=== PATIENT | male | born 1960 | race Caucasian/White ===

== ENCOUNTER 2016-03-12 10:41 | Inpatient (IN) | payer BC, MEDICAID ==
[2016-03-12] MEDS ORDERED: Aspirin Low Dose CHEW TAB* 81 MG PO ONE (10:47)
[2016-03-12 11:34] LABS: Hematocrit 44 % (42-52); Hemoglobin 14.5 g/dl (14.0-18.0); Mean Corpuscular HGB Conc 33 g/dl (31-36); Mean Corpuscular Hemoglobin 29 pg (27-31); Mean Corpuscular Volume 88 fL (80-94); Mean Platelet Volume 8 um3 (7.4-10.4); Red Blood Count 4.97 10^6/ul (4.0-5.4); Red Cell Distribution Width 14 % (10.5-15); White Blood Count 12.4 10^3/ul (3.5-10.8)
[2016-03-12 11:50] LABS: BUN/Creatinine Ratio 15.8 (8-20); Calcium 9.4 mg/dL (8.6-10.3); EGFR African American 105.5 (>60); Globulin 3.1 g/dL (2-4); Potassium 3.8 mmol/L (3.5-5.0); Total Bilirubin 1.1 mg/dL (0.2-1.0); Total Protein 7.1 g/dL (6.4-8.9)
[2016-03-12 11:53] LABS: Troponin I 0.05 ng/mL (<0.04)
--- NOTE | 2016-03-12 11:59 | RAD ---
Indication: Chest pain. Diaphoresis, shortness of breath. Palpitations. Comparison: January 21, [address] Technique: Upright AP 1137 hours Report: Elevated lung volumes and attenuation of pulmonary markings. No focal pulmonary lesion, inflammatory infiltrate, pleural effusion, pneumothorax. The heart, pulmonary vasculature, and mediastinal contours are unremarkable. IMPRESSION: Stigmata of chronic obstructive pulmonary disease and emphysema. No acute cardiopulmonary process evident.
[2016-03-12] MEDS ORDERED: Ketorolac INJ* 30 MG/ML 1 ML VIAL IV ONE (12:01)
--- NOTE | 2016-03-12 12:31 | RAD ---
Indication: Left shoulder pain progressive. 3 views of the left shoulder demonstrates no fracture or dislocation. No other bone or joint abnormality is identified. IMPRESSION: No fracture of the left shoulder is noted.
[2016-03-12] MEDS ORDERED: Ondansetron INJ* 2 MG/ML VIAL IV PRN (14:57)
[2016-03-12 15:17] LABS: C Reactive Protein 17.69 mg/L (< 5.00)
[2016-03-12] MEDS ORDERED: Heparin DRIP 25,000 UNITS(*) 25,000 UNITS/500 ML BAG IVPB SCH (15:30)
[2016-03-12 15:57] LABS: Erythrocyte Sed Rate 14 mm/Hr (0-20)
[2016-03-12] MEDS ORDERED: Heparin VIAL(*) 5000 UNITS/ML VIAL (FIVE THOUSAND) IV SCH ×2 (16:00→18:00)
[2016-03-12] MEDS: NS 0.9% 1000 ML* 1,000 ML IV SCH (16:49)
[2016-03-12] MEDS: Atorvastatin* 80 MG TAB PO SCH (17:02)
[2016-03-12] MEDS ORDERED: Metoprolol Tartrate TAB* 25 MG PO SCH (21:00)
--- NOTE | 2016-03-12 21:24 | HP ---
HISTORY AND PHYSICAL: DATE OF ADMISSION: 03/12/16 PRIMARY CARE PROVIDER: None. ATTENDING PHYSICIAN: Katie Lemus DO * (report dictated by Jaquelin Gonsalez NP ). CHIEF COMPLAINT: 1. Chest tightness. 2. Nausea. HISTORY OF PRESENT ILLNESS: Mr. Tatum is a 55-year-old male patient. He has a history of a bicuspid valve. He comes in to the ER today stating that 2 days ago he noticed that he started having left shoulder pain. It was much worse if he manipulated the shoulder. His shoulder was tender to touch. If he went to raise his arm up, he was having a significant amount of pain. He states that in the last year he has been having intermittent pain like that. He denied having any chest discomfort at that point; however, he woke up in the morning today, he was sweaty. He had a tension, he describes it across the front of his chest. He felt short of breath. He was having some palpitations. He felt weak. He was concerned and he decided to come into the hospital as he was worried that this might indicate a heart attack. He states that by the time he got into the ER, he is unsure how long it lasted but the pain had gone away. He states that he received nitro in the ER and in addition to this, did receive some aspirin, with which the pain went away. He is not sure how long it lasted. He states that prior to this he was able to exert himself. He had no discomfort in his chest. This pain today was brought on with nonexertional discomfort. He states that he does not have a history of smoking, diabetes, high cholesterol, or high blood pressure. He states he has not been sick recently. He does state that he has poor dentition and he has had dental abscesses that he has not had treated in the past. He denied any dental pain currently. He denies any recent URI symptoms. There was concern because initial troponin came back at 0.05 and the hospitalist service was asked to evaluate for admission. PAST MEDICAL HISTORY: Significant for bicuspid valve. PAST SURGICAL HISTORY: Denied. HOME MEDICATIONS: Denied. ALLERGIES TO MEDICATIONS: Include no known drug allergies. FAMILY HISTORY: Mother had COPD. Father had a heart attack at the age of 60, but he was a heavy smoker. SOCIAL HISTORY: He does not smoke. He rarely drinks alcohol. He is with children. Surrogate decision maker is his . REVIEW OF SYSTEMS: There is no documented fever. He denied having any significant weight change. There was no double vision. There is no ear discharge. He denies having any rhinorrhea. No sore throat. No thyroid enlargement. There is chest discomfort per my HPI. There is shortness of breath. There is no orthopnea. No nocturnal dyspnea. There is no abdominal pain. No nausea. No vomiting. No dysuria. No frequency. There is no loss of consciousness. No pruritus and no skin ulcerations. Review of 14 systems completed, all others negative. PHYSICAL EXAMINATION GENERAL: At this time, Mr. Tatum is a 55-year-old male patient. He appears well nourished, well developed. He does not appear to be in any acute distress. He is sitting in the hospital bed. VITAL SIGNS: Blood pressure 102/61, pulse 72, respirations 16, O2 sat 100%, and temperature 99.0. HEENT: Head: Atraumatic and normocephalic. Eyes: EOMs intact. Sclerae anicteric and not pale. Throat: Oral mucosa appears to be moist. No oropharyngeal erythema. NECK: Supple. HEART: Sounds S1, S2. Regular rate and rhythm. He did have a murmur in the mitral area, grade 2 to 3. ABDOMEN: Soft, flat, and nontender. Bowel sounds present. EXTREMITIES: Pulses are 2+ throughout. He is able to move all 4 extremities. He has pain with range of motion to the left shoulder, particularly with abduction and adduction and raising his shoulder above his head, he has discomfort as well. He has 5/5 strength. NEUROLOGIC: He is awake, alert, and oriented x3. Tongue midline. Chemist Intern were equal. No gross focal deficits. SKIN: Intact. LABORATORY DATA/DIAGNOSTIC STUDIES: Today revealed a WBC of 12.4, RBC of 4.97 , hemoglobin 14.5, hematocrit of 44, and a platelet count of 202. His sodium was 134, potassium of 3.8, chloride of 101, bicarb 22, BUN 15, creatinine of 0.95, glucose of 104, lactic of 1.8, calcium 9.4. Total bilirubin 1.1, AST 16, ALT 10, alk phos 61. Troponin was 0.05, repeat 0.16. Albumin 4.0. He had a chest x-ray obtained today, which showed stigmata of COPD and emphysema. No acute cardiopulmonary process evident. He had a shoulder x-ray as well, which showed no fracture of the left shoulder noted. He had initial EKG, which showed a sinus tachycardia, rate of 105. He had ST depression in V3, 4, 5, and 6. He had LVH and looks like a left anterior fascicular block. Repeat EKG with a first-degree AV block, rate of 75. He had inverted T-waves in lead 1, aVL, and T-wave inversions in V4, 5, and 6 and LVH as well. No previous for comparison. Old medical records were reviewed. ASSESSMENT AND PLAN: Mr. Tatum is a 55-year-old male patient coming in to the ER today with complaints of chest discomfort and associated symptoms of nausea, shortness of breath, and diaphoresis. Initial troponin was 0.05, repeat was 0.16. He will be admitted under inpatient status for: 1. Chest discomfort: Concern for acute coronary syndrome. At this point, the patient does have EKG changes. I did touch base with Dr. Morrison occupational medicine officer, Cardiology, about the case. At this point, the patient reports he is not having any chest discomfort. The plan is to go ahead and put him on heparin, statin, beta- grady, aspirin. He received aspirin in the ER. I am going to go ahead and start him on a low-dose metoprolol and a heparin drip. The plan at this point will be to make the patient n.p.o. 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 I did order an echo and we will continue to follow him closely and the EKG changes could be related to the fact that the patient has left ventricular hypertrophy and his bicuspid valve and again, we will get echo to reevaluate this. 2. Leukocytosis: Again, this could be from a myocardial infarction being elevated and a leukemoid reaction. However, the patient does give a history of having dental abscesses in the past with no treatment. He does have a murmur, but he says he has had a murmur in the past. I think minimally I am going to get CRP, ESR, blood cultures. Monitor for fever. Should he spike a fever, I will put him on antibiotics or if the blood cultures come back positive, get an ID consult, as obviously the concern could be a possible endocarditis, although I think less likely. He is not giving that history to me, so we will continue to monitor him for this. 3. DVT prophylaxis: He will be on a heparin drip. 4. Fluids, electrolytes, and nutrition: He can have a heart healthy diet and then, he will be n.p.o. after midnight. 5. Code status: Full code. TIME SPENT: Time spent on the admission was 50 minutes; greater than half the time was spent [id number] with the patient obtaining my history and physical, other half of the time spent going over the plan of care with the patient and implementing plan of care. I did discuss the plan of care with my attending, Dr. Lemus; she is in agreement. JAQUELIN GONSALEZ NP CC: Dr. Morrison* [id number]/CPS #: [id number] MTDD
[2016-03-12] MEDS: Metoprolol Tartrate TAB* 25 MG PO SCH (21:58)
[2016-03-12] MEDS ORDERED: Heparin VIAL(*) 5000 UNITS/ML VIAL (FIVE THOUSAND) SUBCUT SCH (22:00)
[2016-03-12] MEDS: Acetaminophen TAB* 325 MG PO PRN (22:05)
[2016-03-12 22:08] LABS: Urine Bacteria Absent (Absent); Urine Bilirubin Negative (Negative); Urine Glucose Negative (Negative); Urine Nitrite Negative (Negative)
[2016-03-13] MEDS: Acetaminophen TAB* 325 MG PO PRN (03:23)
[2016-03-13] MEDS: NS 0.9% 1000 ML* 1,000 ML IV SCH (03:23)
[2016-03-13 06:08] LABS: Hematocrit 38 % (42-52); Hemoglobin 13.1 g/dl (14.0-18.0); Mean Corpuscular HGB Conc 34 g/dl (31-36); Mean Corpuscular Hemoglobin 30 pg (27-31); Mean Corpuscular Volume 88 fL (80-94); Mean Platelet Volume 8 um3 (7.4-10.4); Red Blood Count 4.37 10^6/ul (4.0-5.4); Red Cell Distribution Width 14 % (10.5-15); White Blood Count 9.8 10^3/ul (3.5-10.8)
[2016-03-13 06:23] LABS: BUN/Creatinine Ratio 20.4 (8-20); Calcium 8.5 mg/dL (8.6-10.3); EGFR African American 108.1 (>60); HDL Cholesterol 51.1 mg/dL; Potassium 4.2 mmol/L (3.5-5.0)
[2016-03-13 06:33] LABS: Troponin I 0.1 ng/mL (<0.04)
[2016-03-13] MEDS: Metoprolol Tartrate TAB* 25 MG PO SCH (08:49)
[2016-03-13] MEDS: Aspirin EC Low Dose* 81 MG TAB.EC PO SCH (09:39)
--- NOTE | 2016-03-13 10:34 | ECHO ---
Patient: LAURA SELBY [facility] Rec#: [id number] : 1960 Date: 03/13/2016 Age: 55y Height: 180.3 cm / 71.0 in Weight: 74.8 kg / 164.9 lbs Sex: M BSA: 1.9 Room#: [facility] Admit Date#: 03/12/2016 Type: Inpatient Referring: Nile Gonsalez NP Reading: Gabriele Madden MD Inside Sales Account Representative: Deborah Boyce RN [facility] Inside Sales Account Representative: Rosmery Velez CC: Raj García MD Transthoracic Echocardiogram Indication: Abnormal EKG, Elevated Troponins BP: 104/52 HR: 62 Rhythm: NSR Findings History: Bicuspid Aortic Valve. Technical Comments: The study quality is fair. Completed at 0930. Left Ventricle: The left ventricular chamber size is normal. Mild to moderate concentric left ventricular hypertrophy is observed. Global left ventricular wall motion and contractility are within normal limits. The left ventricle appears hyperdynamic. The estimated ejection fraction is greater than 65%. Abnormal left ventricular diastolic filling is observed, consistent with impaired relaxation. Left Atrium: The left atrium is slightly dilated. Right Ventricle: The right ventricular cavity size is normal. The right ventricular global systolic function is normal. Right Atrium: The right atrium is mildly dilated. Aortic Valve: The aortic valve appears bicuspid. The aortic valve leaflets are severely thickened with reduced systolic excursion. There is mild to moderate aortic regurgitation. The degree of regurgitation may be underestimated due to an eccentric jet. There is moderate to severe aortic stenosis.Although mean gradient of greater than 40 mmg and peak velocity of greater than 4m/sec suggests more toward severe. The mean gradient of the aortic valve is 63 mmHg. The peak instantaneous gradient of the aortic valve is 93 mmHg. The aortic valve area, by peak velocities, is calculated at 1 cm2. The aortic valve area, by VTI's, is calculated at 1.1 cm2. Highest aortic valve velocity was acquired with Pedoff in suprasternal notch position. The measured aortic regurgitation pressure half-time is 449 msec. Mitral Valve: The mitral valve leaflets are mildly thickened. There is mild mitral regurgitation. There is no evidence of mitral stenosis. Tricuspid Valve: The tricuspid valve leaflets are normal. There is mild tricuspid regurgitation. No pulmonary hypertension is noted. There is no tricuspid stenosis. Pulmonic Valve: The pulmonic valve structure is not well visualized. Pericardium: A trivial pericardial effusion is visualized. A pericardial fat pad is visualized. Aorta: There is no dilatation of the ascending aorta. There is no dilatation of the aortic arch. There is no dilation of the aortic root. Pulmonary Artery: The main pulmonary artery is not well visualized. Venous: The inferior vena cava appears normal in size. There is a greater than 50% respiratory change in the inferior vena cava dimension. Conclusions Mild to moderate concentric left ventricular hypertrophy is observed. The left ventricle appears hyperdynamic. The estimated ejection fraction is greater than 65%. Abnormal left ventricular diastolic filling is observed, consistent with impaired relaxation. The left atrium is slightly dilated. The right atrium is mildly dilated. The aortic valve appears bicuspid. There is moderate to severe aortic stenosis.Although mean gradient of greater than 40 mmg and peak velocity of greater than 4m/sec suggests more toward severe. There is mild to moderate aortic regurgitation(see note above). There is mild mitral regurgitation. A trivial pericardial effusion is visualized. Compared to report of study from 03/01/2006 the bicuspid valve has worsened significantly. Measurements Name Value Normal Range RVDdMajor (2D) 3 cm (2.2 - 4.4) RAd ISD 4CH 5.3 cm (3.4 - 4.9) RA (A4C)W 3.7 cm (2.9 - 4.6) IVSd (2D) 1.4 cm (0.6 - 1) LVPWd (2D) 1.1 cm (0.6 - 1) LVIDd (2D) 4.8 cm (3.6 - 5.4) LVIDs (2D) 2.9 cm - LV FS (2D) 40 % (25 - 45) Aortic Annulus 2.2 cm (1.4 - 2.6) Ao root diameter (2D) 3 cm (2.1 - 3.5) Ascending Ao 3 cm (2.1 - 3.4) Aortic arch 2.9 cm (1.8 - 3.4) LA dimension (AP) 2D 3.8 cm (2.3 - 3.8) LAd ISD 4CH 5 cm (2.9 - 5.3) LA ISD 4CH W 4.9 cm (2.5 - 4.5) Name Value Normal Range LA ESV SP 4CH (A/L) 73 ml - LA ESV SP 2CH (A/L) 48 ml - LA ESV BP (A/L) 60 ml - LA ESV BP (A/L) index 31 ml/m2 - LA ESV SP 4CH (MOD) 67 ml - LA ESV SP 2CH (MOD) 44 ml - Name Value Normal Range MV E-wave Vmax 0.5 m/sec - MV deceleration time 181 msec - MV A-wave Vmax 0.8 m/sec - MV E:A ratio 0.6 ratio - LV septal e' Vmax 0.03 m/sec - LV lateral e' Vmax 0.07 m/sec - LV E:e' septal ratio 16.7 ratio - LV E:e' lateral ratio 7.1 ratio - Name Value Normal Range AV Vmax 4.8 m/sec - AV VTI 119.5 cm - AV peak gradient 93 mmHg - AV mean gradient 63 mmHg - LVOT diameter 2.3 cm - LVOT Vmax 1.2 m/sec - LVOT VTI 30.6 cm - PAUL (continuity Vmax) 1 cm2 - PAUL (continuity VTI) 1.1 cm2 - AR PHT 449 msec - AR peak gradient 54 mmHg - Name Value Normal Range TR Vmax 2.7 m/sec - TR peak gradient 29 mmHg - RAP 3 mmHg - RVSP 32 mmHg - IVC diameter 1.4 cm -
[2016-03-13] MEDS ORDERED: Adenosine* 3 MG/ML VIAL ONE ×2 (12:27→12:28)
[2016-03-13] MEDS ORDERED: Metoprolol Tartrate TAB* 25 MG PO SCH (12:54)
[2016-03-13] MEDS ORDERED: Metoprolol Tartrate IV* 1 MG/ML 5 ML VIAL IV PRN (12:55)
[2016-03-13] MEDS ORDERED: Diazepam TAB(*) 5 MG PO ONE (13:22)
[2016-03-13] MEDS ORDERED: diPHENhydraMINE PO* 25 MG PO ONE (13:22)
[2016-03-13] MEDS ORDERED: NS 0.9% 1000 ML* 1,000 ML IV SCH ×2 (13:30→16:00)
[2016-03-13] MEDS ORDERED: Metoprolol Tartrate TAB* 50 mg PO SCH (13:41)
[2016-03-13] MEDS ORDERED: Midazolam* 1 MG/ML 5 ML VIAL (5 MG) ONE (14:21)
[2016-03-13] MEDS ORDERED: fentaNYL* 50 MCG/ML 2 ML VIAL (100 MCG VIAL) ONE (14:21)
[2016-03-13] MEDS ORDERED: Iohexol 350 (CONTRAST) 200 ML MDV IV ONE (14:22)
[2016-03-13] MEDS ORDERED: Lidocaine 1% INJ* 10 MG/ML 30 ML SDV ONE (14:22)
[2016-03-13] MEDS ORDERED: Heparin 2 UNITS/ML IVPREMIX* 3,000 ML IV ONE (14:22)
--- NOTE | 2016-03-13 14:49 | PN ---
Subjective Date of Service: 03/13/16 Interval History: This is a 55 yo gentleman with a known bicuspid aortic valve who presented with complaints of L shoulder pain, lightheadedness and generalized malaise who had an indeterminant trop in the ER but lateral Twave changes in precordial leads. He was placed on a heparin drip overnight. Trop improved overnight and patient went to stress test. He went in to a junctional tachycardia which was broken with adenosine but then immediately returned. Patient is still tachycardic at this time with HR ~120 bpm. He states that he is still having L shoulder pain, that is mostly present with motion of his arm. He feels a little flushed but otherwise has no complaints. Objective Active Medications: Acetaminophen (Tylenol Tab*) 650 mg PO Q4H PRN PRN Reason: FEVER/PAIN Last Admin: 03/13/16 03:23 Dose: 650 mg Aspirin (Aspirin Ec Low Dose*) 81 mg PO DAILY [facility] Last Admin: 03/13/16 09:39 Dose: 81 mg Atorvastatin Calcium (Lipitor*) 80 mg PO 1700 [facility] Last Admin: 03/12/16 17:02 Dose: 80 mg Sodium Chloride (Ns 0.9% 1000 Ml*) 1,000 mls @ 100 mls/hr IV PER RATE [facility] Last Admin: 03/13/16 03:23 Dose: 100 mls/hr Sodium Chloride (Ns 0.9% 1000 Ml*) 1,000 mls @ 100 mls/hr IV .per rate [facility] Metoprolol Tartrate (Lopressor Iv*) 5 mg IV Q6H PRN PRN Reason: Heart rate greater than 100 Metoprolol Tartrate (Lopressor Tab*) 50 mg PO BID [facility] Ondansetron HCl (Zofran Inj*) 4 mg IV Q6H PRN PRN Reason: NAUSEA Vital Signs: Temp Pulse Resp BP Pulse Ox 97.5 F 110 18 127/76 100 03/13/16 11:09 03/13/16 11:09 03/13/16 11:09 03/13/16 11:09 03/13/16 11:09 Appearance: Well appearing gentleman who appears younger than stated age who is in NAD Neck: NL Appearance and Movements; NL JVP Respiratory: Symmetrical Chest Expansion and Respiratory Effort, Clear to Auscultation Cardiovascular: RRR - tachycardic, - - significant murmur appreciated, best heard at RSB Abdominal: NL Sounds; No Tenderness; No Distention Extremities: No Edema Neurological: Alert and Oriented x 3 Result Diagrams: 03/13/16 05:33 03/13/16 05:33 Microbiology and Other Data: Microbiology 03/12/16 21:35 Urine Culture - Final Urine No Growth (<1,000 CFU/mL) Diagnostic Imaging: Echo - mild-mod LVH, mod-severe , mild-mod , LVEF WNL Assess/Plan/Problems-Billing Assessment: This is a 55 yo gentleman with a history of a bicuspid aortic valve who presented with vague cardiac symptoms now with elevated troponin and tachyarrythmia. Cardiac catheterization pending. - Patient Problems (1) ACS (acute coronary syndrome) Comment: Pending cardiac cath Dynamic lateral precordial changes Heparin drip in place Cont BB, statin, ASA (2) Severe aortic stenosis Comment: Known bicuspid aortic valve, now with known severe aortic stenosis Will discuss further with cardiology following cath (3) Tachyarrhythmia Comment: Sustained HR in the 120s Pending cath Cont BB Status and Disposition: Pending cardiac cath, disposition will depend greatly on this. Requires continued hospital care. Will transition to inpatient status.
[2016-03-13] MEDS ORDERED: Heparin 2 UNITS/ML IVPREMIX* 1,000 ML IV ONE (14:50)
[2016-03-13] MEDS ORDERED: Metoprolol Tartrate IV* 1 MG/ML 5 ML VIAL ONE (14:59)
[2016-03-13] MEDS ORDERED: Acetaminophen TAB* 325 MG PO PRN (15:48)
[2016-03-13] MEDS ORDERED: Atropine SYRINGE* 0.1 MG/ML 10 ML SYRINGE (1 MG) IV PUSH PRN (16:00)
[2016-03-13] MEDS: Atorvastatin* 80 MG TAB PO SCH (17:27)
--- NOTE | 2016-03-13 17:48 | CONS ---
CARDIOLOGY CONSULTATION REPORT: DATE OF CONSULT: 03/13/16 INDICATION FOR CONSULT: Chest pain, elevated troponin, bicuspid aortic valve. HISTORY OF PRESENT ILLNESS: The patient is a 55-year-old gentleman with a history of bicuspid valve who came to the emergency room because of chest pain and chest tightness. The patient states that a couple of days ago, he started noticing that his left shoulder was more difficult to move, it just felt stiff. He denied any injury to the left shoulder. He denied any change in symptoms when he exerted himself. The patient works at [employer] and is often lifting and moving boxes and does not get any chest pain or shortness of breath with those activities. However, on the day of admission, he woke up the morning , had continued left shoulder discomfort and started to feel nauseous and diaphoretic. At that point, he decided to come to the emergency room for evaluation. Again, the patient denied any syncopal episodes. He has no history of coronary artery disease, but does have a history of bicuspid aortic valve diagnosed in 2006. 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 The patient was admitted to the emergency room. His initial EKG showed normal sinus rhythm with T-wave inversions consistent with left ventricular hypertrophy. Initial troponin level was minimally elevated at 0.05. The patient was admitted to the hospital for evaluation. The patient has not had any further episodes of chest discomfort, he has not had any further episodes of nausea; however, he continues to have left shoulder discomfort. PAST MEDICAL HISTORY: Significant for bicuspid aortic valve. PAST SURGICAL HISTORY: None. MEDICATIONS: None. ALLERGIES: None. FAMILY HISTORY: His mother of complications of COPD. Father had a history of myocardial infarction at the age of 60. His father was a heavy smoker. SOCIAL HISTORY: The patient is . He has 2 children. He works at [employer]. He denies tobacco or alcohol use. REVIEW OF SYSTEMS: Negative for fevers or chills. Negative for changes in weight. Negative for lightheadedness, dizziness, or syncope. PHYSICAL EXAM: Height is 5 feet 11 inches, weight 165 pounds, temperature 97.5 , heart rate is 90, respiratory rate is 18, oxygen saturation is 100% on room air. Blood pressure 127/76. Sclerae anicteric. Oropharynx is pink without erythema. Carotids are 2+ without bruits. JVD is normal. Thyroid is normal. Cardiac Exam: S1, S2 with a 2/6 systolic ejection murmur heard best at the right upper sternal border. PMI is normal. Lungs are clear to auscultation bilaterally with no dullness to percussion. Abdomen is soft, nontender, nondistended with normoactive bowel sounds. Extremities show no edema. He has 2+ pulses in his dorsalis pedis and popliteal. The patient is awake, alert, and oriented. He moves all 4 extremities equally. DIAGNOSTIC STUDIES/LAB DATA: CBC within normal limits. Chemistries within normal limits. Initial troponin level is 0.05. Peak troponin 0.23. Total cholesterol 186, LDL cholesterol 126, HDL cholesterol of 51. The patient was scheduled for an exercise nuclear stress test. The patient was brought downstairs. He was in a normal sinus rhythm on arrival to the exercise suite. However, within a few minutes the patient went into a junctional tachycardia at 125 beats per minute. The patient did not have any significant symptoms associated with this. He did feel a little bit lightheaded when he stood up. The patient was given 6 mg of adenosine, which causes rhythm to change to a normal sinus rhythm with 2:1 conduction with occasional PVCs. After 10 seconds or so, he reverted back to junctional tachycardia at 130 beats per minute. IMPRESSION: This is a 55-year-old gentleman with a history of bicuspid aortic valve. His echocardiogram shows normal left ventricular function. He has moderate- to-severe aortic stenosis. He does have a significant mean gradient across this aortic valve and his dimensionless index is 0.26. He does not have any dilation of his ascending aorta. The question is whether his symptoms are related to his aortic stenosis. The patient does have this junctional tachycardia. The patient does not have any history of arrhythmias. I do not think it is barrow to undergo an exercise stress test in a junctional tachycardia. At this point, my recommendation is for the patient to undergo cardiac catheterization for definitive evaluation of his coronary arteries. I will also get measurements across his aortic valve. Likely, the patient will be started on an antiarrhythmic medication. I would like to start the patient on Multaq. I am not sure I need to start the patient on sotalol or Tikosyn, which requires 3 days of hospitalization. Further recommendations pending the results of his cardiac catheterization. CC: Dr. García* [id number]/[facility] #: [id number] JAVON
[2016-03-13] MEDS: Metoprolol Tartrate TAB* 50 mg PO SCH (21:39)
[2016-03-14 07:44] VITALS: BP 88/50
[2016-03-14] MEDS ORDERED: Aspirin EC Low Dose* 81 MG TAB.EC ONE (09:17)
[2016-03-14] MEDS: Metoprolol Tartrate TAB* 50 mg PO SCH (09:19)
[2016-03-14] MEDS: Aspirin EC Low Dose* 81 MG TAB.EC PO SCH (09:20)
--- NOTE | 2016-03-14 09:50 | CATH ---
CARDIAC CATHETERIZATION: DATE OF PROCEDURE: 03/12/16 - ROOM #446 PROCEDURE: Cardiac catheterization including right heart catheterization, left heart catheterization, coronary angiography, left ventriculogram. INDICATION: Aortic stenosis. The patient is a 55-year-old gentleman with a history of bicuspid aortic valve who was admitted to the hospital with chest pain and diaphoresis. He has a minimally elevated troponin level and an abnormal EKG. Cardiac catheterization was recommended to evaluate his valve for surgery. DESCRIPTION OF PROCEDURE: The patient was brought to the cardiac catheterization lab in a fasting state. Informed consent had been obtained prior to the procedure. All labs had been reviewed. The patient was placed supine on the catheterization table. Both femoral areas were cleaned and draped in the usual fashion. 1% lidocaine was used for local anesthesia. The right femoral vein was entered by a modified Seldinger technique and an 8- Nigerian sheath introducer was placed. The patient underwent right heart catheterization with a 7-Nigerian blunt tip [place]Leslie catheter. Multiple hemodynamic and oxygen saturation measurements were taken. Cardiac output was determined by Andrew and thermodilution. The right femoral artery was entered via modified Seldinger technique and a 6- Nigerian sheath introducer was placed. The patient underwent left ventriculogram , coronary angiography using a 6-Nigerian Pigtail catheter, a 6-Nigerian JL5 catheter, and a 6-Nigerian JR4 catheter. At the end of the procedure, angiogram of the femoral artery demonstrated normal position of the catheter and a Mynx closure device was deployed. The patient tolerated the procedure well. There were no complications. A total of 100 cc of Omnipaque dye was used. A total of 7.3 minutes of fluoro time was used. FINDINGS: HEMODYNAMICS: Right atrial pressure with a mean of 9, right ventricular pressure of 30/2 with an end-diastolic pressure of 6, pulmonary capillary wedge pressure of 10, pulmonary artery pressure of 34/16 with a mean of 23, left ventricular pressure 172/6 with an end-diastolic pressure of 10. Central aortic pressure 100/58 with a mean of 77. Cardiac output by Andrew 5.1 L/min. Cardiac output by thermodilution 5.7 L/min. Oxygen saturation, right atrial saturation 69%, pulmonary artery saturation 66%, central aortic saturation 93%. Aortic valve with a mean gradient of 52 mmHg. Calculated valve area by thermodilution 0.7 cm squared, 0.34 cm squared by body surface area. CORONARY ARTERIES: 1. Left main artery: The left main was normal in size. It trifurcated into the LAD, ramus artery and circumflex artery. There was no evidence of stenosis. 2. Left anterior descending artery: The LAD was normal in size. It gave off two diagonal vessels. There is no evidence of stenosis. 3. Left circumflex artery: The circumflex artery was normal in size. It gave off one obtuse marginal branch. There was no evidence of stenosis. 4. Ramus artery. The ramus artery was a moderate vessel. There was no evidence of stenosis. 5. Right coronary artery. The right coronary artery was a large dominant vessel, giving off the PDA. There is no evidence of stenosis. LEFT VENTRICULOGRAM: Left ventricle showed normal LV size with systolic function. There was heavy calcification of the aortic valve. There was 1+ mitral regurgitation. The ascending aorta was normal in size. IMPRESSION: 1. Normal LV size and systolic function. 2. Severe aortic stenosis. 3. Normal coronary arteries. 4. Mynx closure device to the right femoral artery. RECOMMENDATION: The patient will undergo aortic valve replacement. [id number]/[facility] #: [id number] JAVON
--- NOTE | 2016-03-14 11:42 | PN ---
Subjective Date of Service: 03/14/16 - CC: Interval History: No recurrence of diaphoresis and nausea since admission. Left shoulder pain with moving/lifting left arm persists. None walking. The patient had many questions regarding his aortic valve and left shoulder pain , upcoming surgery. Medications Active Medications: Acetaminophen (Tylenol Tab*) 650 mg PO Q4H PRN PRN Reason: PAIN - MILD Last Admin: 03/13/16 21:36 Dose: 650 mg Aspirin (Aspirin Ec Low Dose*) 81 mg PO DAILY [facility] Last Admin: 03/14/16 09:20 Dose: 81 mg Atorvastatin Calcium (Lipitor*) 80 mg PO 1700 [facility] Last Admin: 03/13/16 17:27 Dose: 80 mg Atropine Sulfate (Atropine Syringe*) 0.5 mg IV PUSH ONCE PRN PRN Reason: SYMPTOMATIC BRADYCARDIA Metoprolol Tartrate (Lopressor Iv*) 5 mg IV Q6H PRN PRN Reason: Heart rate greater than 100 Metoprolol Tartrate (Lopressor Tab*) 50 mg PO 0900,2100 [facility] Last Admin: 03/14/16 09:19 Dose: 50 mg Ondansetron HCl (Zofran Inj*) 4 mg IV Q6H PRN PRN Reason: NAUSEA Objective Vital Signs: Temp Pulse Resp BP Pulse Ox 98.3 F 67 14 88/50 98 03/14/16 07:34 03/14/16 07:34 03/14/16 07:56 03/14/16 07:34 03/14/16 10:49 Oxygen Devices in Use Now: None Appearance: fit appearing older middle aged gentleman lying in bed, comfortable. Eyes: No Scleral Icterus, PERRLA Ears/Nose/Mouth/Throat: Mucous Membranes Moist Neck: NL Appearance and Movements; NL JVP, Trachea Midline Respiratory: Clear to Auscultation Cardiovascular: RRR - S1, no S2, 3/6 pansystolic murmer heard best in the RUSB, radiating across the precordium. + diastolic murmer. Abdominal: NL Sounds; No Tenderness; No Distention Extremities: - - good symetrical radial pulses, pt would not lift LUE for me do to concern for precipitation of pain. Skin: No Rash or Ulcers Laboratory Results: APTT 38.5 seconds (26.0-36.3) H 03/13/16 13:22 Total Bilirubin 1.10 mg/dL (0.2-1.0) H 03/12/16 11:23 AST 16 U/L (13-39) 03/12/16 11:23 ALT 10 U/L (7-52) 03/12/16 11:23 Alkaline Phosphatase 61 U/L (34-104) 03/12/16 11:23 Total Protein 7.1 g/dL (6.4-8.9) 03/12/16 11:23 Albumin 4.0 g/dL (3.2-5.2) 03/12/16 11:23 Globulin 3.1 g/dL (2-4) 03/12/16 11:23 Albumin/Globulin Ratio 1.3 (1-3) 03/12/16 11:23 Triglycerides 44 mg/dL 03/13/16 05:33 Cholesterol 186 mg/dL 03/13/16 05:33 LDL Cholesterol 126 mg/dL 03/13/16 05:33 HDL Cholesterol 51.1 mg/dL 03/13/16 05:33 Diagnostic Imaging: Cardiac catheterization: normal coronary arteries, severe , mean gradient 52 mm Hg. Echo: Severe mean gradient 63 mmHg, peak velocity > 4 m/s, PAUL 1.0 cm2, moderate AI, P 1/2 449 ms, preserved LV systolic function, EF > 65%, . EKG Data: Monitor: NSR, no recurrence of junctional/narrow complex tachycardia. Assessment/Plan 55 yo male with a bicuspid aortic valve, presented with new onset shoulder pain (c/w musculo/skelatal in etiology) and associated nausea and diaphoresis. Findings at [facility] included intermittent narrow complex tachycardia, mild bump in troponins, severe , moderate AI and normal coronary arteries. Points of Discussion: Bicuspid aortic valve, /AI: I agree with surgery recommendations as an outpatient. I discussed activity limitations, symptom limited activity and avoidance of heavy lifting. SVT: Continue beta grady, I discussed the importance of compliance with the patient. BP: low/low normal BP noted, pt asymptomatic, OK to d/c on current metoprolol dose, can be adjusted prn symptoms as outpatient. Shoulder pain: sounds non cardiac, musc/skel, I reassured the patient. Defer management/work up plant to hospitalists. I spent 30 minutes answering questions with the patient.
--- NOTE | 2016-03-14 20:04 | PN ---
Hospitalist Progress Note . HOSPITALIST DISCHARGE NOTE: See dc instructions and summary by me. Patient stable for dc dc instructions reviewed with the patient at the bedside. DC patient home today.
--- NOTE | 2016-03-15 13:01 | RAD ---
INDICATION: Chest pain. COMPARISON: There are no prior studies available for comparison. Technique: A resting only study was performed. The stress study was canceled secondary to a rapid heart rate. The patient was given intervenous injection of 10.51 mCi of technetium 99m tetrofosmin intravenously and multiple images of the heart were obtained. Images were reconstructed in the axial, sagittal and coronal planes and in a 3-D format. The patient could not be positioned for the attenuation corrected images further limiting the study. The study was not gated due to the patient's irregular heart rate. FINDINGS: The images demonstrate normal distribution of radiopharmaceutical. There is no evidence for infarct. IMPRESSION: LIMITED REST STUDY ONLY, NO EVIDENCE FOR INFARCT CONSIDER FOLLOW-UP STRESS MYOCARDIAL PERFUSION IMAGING WHEN THE PATIENT IS CLINICALLY ABLE.
--- NOTE | 2016-03-15 15:36 | DS ---
DISCHARGE SUMMARY: DATE OF ADMISSION: 03/12/16 DATE OF DISCHARGE: 03/14/16 PRIMARY CARE PROVIDER: Krishan García MD, [facility] - perhaps an associate in Dr. García's office - route to Dr. García for further routing. PRINCIPAL DISCHARGE DIAGNOSIS: Critical aortic stenosis with echocardiogram results below and cardiac catheterization did not show obstructive coronary disease. SECONDARY DIAGNOSIS: Known bicuspid aortic valve. DISCHARGE MEDICATIONS: 1. Aspirin 81 mg by mouth daily. 2. Metoprolol 50 mg by mouth twice daily. 3. OTC garlic (now prescribed). 4. OTC fish oil (now prescribed). FOLLOWUP: With Dr. Edin Morrison, [employer] sales consultant. HISTORY OF PRESENT ILLNESS/HOSPITAL COURSE: Please see the H and P by Dr. Katie Lemus on 03/12/16. In brief, Mr. Tatum is a 55-year-old gentleman with a history of bicuspid aortic valve who came to the emergency room with 2 days of left shoulder pain. It was worse when he manipulated the shoulder. It was tender to touch. It was clearly a musculoskeletal issue. The patient did have aspirin because of the concern for perhaps a coronary equivalent and that he had some pain resolved. The patient's troponin came back at 0.05 and the hospitalists were asked for evaluation. The patient did have an initial EKG which showed ST depressions at V3, 4, 5, and 6 with LVH and left anterior fascicular block. The patient was placed on observation status and there was a cardiology consult because of the EKG changes. The patient was started on low dose metoprolol and heparin drip. The patient ultimately went to cardiac catheterization when he failed a stress test because of extreme tachycardia. His troponin did increase but never out of the indeterminate range. The patient 's cardiac catheterization showed clean coronaries. He did have a transthoracic echocardiogram which was very concerning and that it showed severe aortic stenosis with a mean gradient of greater than 40 mmHg and a peak velocity greater than 4 m/second. The patient is recommended for cardiac surgery. The patient understands this and is working with a social media marketing analyst to obtain an insurance for this. The patient is being discharged in stable condition with stable vital signs and no chest discomfort with a heart rate that is much better controlled on admission. On his metoprolol, his tachycardia has nicely resolved with a resting heart rate in the 60s and 70s down from the heart rate in the mid teens around the time of admission. The patient still has shoulder pain. He has very clearly musculoskeletal pain on the anterior portion of his left shoulder capsule and he will require an orthopedics followup at some point, but there was no trauma that was causing this and this has been going on for a year. So, I felt it is not sufficiently urgent to justify an inpatient orthopedics consultation. The patient is going to follow up with [facility], but also with [facility] Cardiology, they are aware of his situation and going to reach out. I spoke to him about the importance of medication compliance in particular his aspirin and metoprolol and he said he will comply with that instruction. TIME SPENT: Total time taken to discharge Mr. Tatum was 45 minutes; greater than half that time was spent going over the discharge instructions, face-to- face with the patient. CC: Dr. García * [id number]/[facility] #: [id number] JAVON
--- NOTE | 2016-04-02 20:16 | ED ---
Monico Foster Matthew, scribed for Faith Marks MD on 03/12/16 at 1157 . HPI Chest Pain - HPI Summary HPI Summary: A 55 y/o male presents to the ED with mild chest pain since this morning. Associated symptoms include left arm pain - since 2 days ago, SOB - since 08:00 today, fever, mild chest discomfort - since this morning, and fatigue. The patient denies trauma, cough, chills, and upper back pain. His arm pain alleviates with rest and worsens with movement. For the past year, he has had had minimal left arm pain, which worsened with reaching movements. - History of Current Complaint Chief Complaint: EDChestPainROMI Time Seen by Provider: 03/12/16 11:13 Hx Obtained From: Patient Onset/Duration: Started Hours Ago, Atraumatic, Still Present Timing: Constant Initial Severity: Mild Current Severity: Mild Chest Pain Location: Mid Sternal Associated Signs and Symptoms: Positive: Chest Pain, Shortness of Breath, Other : - Fatigue. Negative: Chills, Cough, Back Pain - upper back pain - Allergy/Home Medications Allergies/Adverse Reactions: Allergies Allergy/AdvReac Type Severity Reaction Status Date / Time No Known Allergies Allergy Verified 03/12/16 11:36 PMH/Surg Hx/FS Hx/Imm Hx Previously Healthy: Yes Endocrine/Hematology History: Denies: Hx Diabetes Cardiovascular History: Denies: Hx Hypertension Infectious Disease History: Denies: Traveled Outside the [place] in Last 30 Days - Family History Family History: No FHx of blood clots or PE. No FHx of AK <55 - Social History Lives: With Family Alcohol Use: None Substance Use Type: Reports: Marijuana Hx Tobacco Use: No Smoking Status (MU): Never Smoked Tobacco Review of Systems Positive: Fatigue. Negative: Chills Eyes: Negative ENT: Negative Positive: Chest Pain - minimal Positive: Shortness Of Breath. Negative: Cough Gastrointestinal: Negative Genitourinary: Negative Positive: Myalgia - lower back pain Skin: Negative Neurological: Negative Psychological: Normal All Other Systems Reviewed And Are Negative: Yes Physical Exam Triage Information Reviewed: Yes Vital Signs On Initial Exam: Temp Pulse Resp BP Pulse Ox 98.4 F 104 14 118/86 98 03/12/16 11:26 03/12/16 11:30 03/12/16 11:30 03/12/16 11:30 03/12/16 11:30 Vital Signs Reviewed: Yes Appearance: Positive: Well-Appearing, No Pain Distress Skin: Positive: Warm, Skin Color Reflects Adequate Perfusion, Dry Head/Face: Positive: Normal Head/Face Inspection Eyes: Positive: EOMI, MICHELLE ENT: Positive: Pharynx normal, TMs normal Neck: Positive: Supple, Nontender Respiratory/Lung Sounds: Positive: Clear to Auscultation, Breath Sounds Present Cardiovascular: Positive: RRR, Murmur - 3/6 holosystolic. Negative: Rub Abdomen Description: Positive: Nontender, Soft Bowel Sounds: Positive: Present Musculoskeletal: Positive: Other - severe deltopectoral groove tenderness with abduction Neurological: Positive: Normal, Sensory/Motor Intact, Alert, Oriented to Person Place, Time, CN Intact II-III - II-XII Psychiatric: Positive: Normal, Affect/Mood Appropriate Diagnostics - Vital Signs Vital Signs Temp Pulse Resp BP Pulse Ox 03/13/16 11:09 97.5 F 110 18 127/76 100 03/13/16 09:07 97 03/13/16 08:00 16 03/13/16 07:41 97.5 F 61 16 111/51 96 03/13/16 07:28 98 03/13/16 03:18 98.5 F 64 16 104/52 98 03/13/16 00:00 95 03/12/16 23:45 98.2 F 63 16 93/50 95 03/12/16 19:23 98.1 F 78 16 97/60 95 03/12/16 17:41 100 03/12/16 16:00 100 03/12/16 15:02 99.0 F 72 16 102/61 100 03/12/16 13:30 80 14 93/67 96 03/12/16 13:00 87 16 104/63 96 03/12/16 12:44 97 15 117/56 97 03/12/16 12:35 85 12 95 03/12/16 12:00 84 13 106/62 96 03/12/16 11:30 104 14 118/86 98 03/12/16 11:26 98.4 F 108 16 118/86 100 03/12/16 11:07 130 99 03/12/16 11:06 129/60 - Laboratory Lab Results: Lab Results 03/12/16 03/12/16 03/12/16 Range/Units 11:23 11:23 11:23 WBC 12.4 H (3.5-10.8) 10^3/ul RBC 4.97 (4.0-5.4) 10^6/ul Hgb 14.5 (14.0-18.0) g/dl Hct 44 (42-52) % MCV 88 (80-94) fL MCH 29 (27-31) pg MCHC 33 (31-36) g/dl RDW 14 (10.5-15) % Plt Count 202 (150-450) 10^3/ul MPV 8 (7.4-10.4) um3 Neut % (Auto) 79.8 (38-83) % Lymph % (Auto) 11.0 L (25-47) % Douglas % (Auto) 8.1 (1-9) % Eos % (Auto) 0.8 (0-6) % Baso % (Auto) 0.3 (0-2) % Absolute Neuts (auto) 9.9 H (1.5-7.7) 10^3/ul Absolute Lymphs (auto) 1.4 (1.0-4.8) 10^3/ul Absolute Monos (auto) 1.0 H (0-0.8) 10^3/ul Absolute Eos (auto) 0.1 (0-0.6) 10^3/ul Absolute Basos (auto) 0 (0-0.2) 10^3/ul Absolute Nucleated RBC 0 10^3/ul Nucleated RBC % 0 ESR 14 (0-20) mm/Hr APTT (26.0-36.3) seconds Sodium 134 (133-145) mmol/L Potassium 3.8 (3.5-5.0) mmol/L Chloride 101 (101-111) mmol/L Carbon Dioxide 22 (22-32) mmol/L Anion Gap 11 (2-11) mmol/L BUN 15 (6-24) mg/dL Creatinine 0.95 (0.67-1.17) mg/dL Est GFR ( Amer) 105.5 (>60) Est GFR (Non-Af Amer) 82.0 (>60) BUN/Creatinine Ratio 15.8 (8-20) Glucose 104 H (70-100) mg/dL Hemoglobin A1c (Less than 6.0) % Lactic Acid 1.8 (0.5-2.0) mmol/L Calcium 9.4 (8.6-10.3) mg/dL Total Bilirubin 1.10 H (0.2-1.0) mg/dL AST 16 (13-39) U/L ALT 10 (7-52) U/L Alkaline Phosphatase 61 (34-104) U/L Troponin I 0.05 H* (<0.04) ng/mL C-Reactive Protein 17.69 H (< 5.00) mg/L Total Protein 7.1 (6.4-8.9) g/dL Albumin 4.0 (3.2-5.2) g/dL Globulin 3.1 (2-4) g/dL Albumin/Globulin Ratio 1.3 (1-3) Triglycerides mg/dL Cholesterol mg/dL LDL Cholesterol mg/dL HDL Cholesterol mg/dL Urine Color Urine Appearance Urine pH (5-9) Ur Specific [place] (1.010-1.030) Urine Protein (Negative) Urine Ketones (Negative) Urine Blood (Negative) Urine Nitrate (Negative) Urine Bilirubin (Negative) Urine Urobilinogen (Negative) Ur Leukocyte Esterase (Negative) Urine WBC (Auto) (Absent) Urine RBC (Auto) (Absent) Urine Bacteria (Absent) Urine Glucose (Negative) 03/12/16 03/12/16 03/12/16 Range/Units 14:21 16:26 16:28 WBC (3.5-10.8) 10^3/ul RBC (4.0-5.4) 10^6/ul Hgb (14.0-18.0) g/dl Hct (42-52) % MCV (80-94) fL MCH (27-31) pg MCHC (31-36) g/dl RDW (10.5-15) % Plt Count (150-450) 10^3/ul MPV (7.4-10.4) um3 Neut % (Auto) (38-83) % Lymph % (Auto) (25-47) % Douglas % (Auto) (1-9) % Eos % (Auto) (0-6) % Baso % (Auto) (0-2) % Absolute Neuts (auto) (1.5-7.7) 10^3/ul Absolute Lymphs (auto) (1.0-4.8) 10^3/ul Absolute Monos (auto) (0-0.8) 10^3/ul Absolute Eos (auto) (0-0.6) 10^3/ul Absolute Basos (auto) (0-0.2) 10^3/ul Absolute Nucleated RBC 10^3/ul Nucleated RBC % ESR (0-20) mm/Hr APTT 33.7 (26.0-36.3) seconds Sodium (133-145) mmol/L Potassium (3.5-5.0) mmol/L Chloride (101-111) mmol/L Carbon Dioxide (22-32) mmol/L Anion Gap (2-11) mmol/L BUN (6-24) mg/dL Creatinine (0.67-1.17) mg/dL Est GFR ( Amer) (>60) Est GFR (Non-Af Amer) (>60) BUN/Creatinine Ratio (8-20) Glucose (70-100) mg/dL Hemoglobin A1c (Less than 6.0) % Lactic Acid (0.5-2.0) mmol/L Calcium (8.6-10.3) mg/dL Total Bilirubin (0.2-1.0) mg/dL AST (13-39) U/L ALT (7-52) U/L Alkaline Phosphatase (34-104) U/L Troponin I 0.16 H* 0.23 H* (<0.04) ng/mL C-Reactive Protein (< 5.00) mg/L Total Protein (6.4-8.9) g/dL Albumin (3.2-5.2) g/dL Globulin (2-4) g/dL Albumin/Globulin Ratio (1-3) Triglycerides mg/dL Cholesterol mg/dL LDL Cholesterol mg/dL HDL Cholesterol mg/dL Urine Color Urine Appearance Urine pH (5-9) Ur Specific [place] (1.010-1.030) Urine Protein (Negative) Urine Ketones (Negative) Urine Blood (Negative) Urine Nitrate (Negative) Urine Bilirubin (Negative) Urine Urobilinogen (Negative) Ur Leukocyte Esterase (Negative) Urine WBC (Auto) (Absent) Urine RBC (Auto) (Absent) Urine Bacteria (Absent) Urine Glucose (Negative) 03/12/16 03/12/16 03/12/16 Range/Units 18:21 20:37 21:35 WBC (3.5-10.8) 10^3/ul RBC (4.0-5.4) 10^6/ul Hgb (14.0-18.0) g/dl Hct (42-52) % MCV (80-94) fL MCH (27-31) pg MCHC (31-36) g/dl RDW (10.5-15) % Plt Count (150-450) 10^3/ul MPV (7.4-10.4) um3 Neut % (Auto) (38-83) % Lymph % (Auto) (25-47) % Douglas % (Auto) (1-9) % Eos % (Auto) (0-6) % Baso % (Auto) (0-2) % Absolute Neuts (auto) (1.5-7.7) 10^3/ul Absolute Lymphs (auto) (1.0-4.8) 10^3/ul Absolute Monos (auto) (0-0.8) 10^3/ul Absolute Eos (auto) (0-0.6) 10^3/ul Absolute Basos (auto) (0-0.2) 10^3/ul Absolute Nucleated RBC 10^3/ul Nucleated RBC % ESR (0-20) mm/Hr APTT (26.0-36.3) seconds Sodium (133-145) mmol/L Potassium (3.5-5.0) mmol/L Chloride (101-111) mmol/L Carbon Dioxide (22-32) mmol/L Anion Gap (2-11) mmol/L BUN (6-24) mg/dL Creatinine (0.67-1.17) mg/dL Est GFR ( Amer) (>60) Est GFR (Non-Af Amer) (>60) BUN/Creatinine Ratio (8-20) Glucose (70-100) mg/dL Hemoglobin A1c (Less than 6.0) % Lactic Acid (0.5-2.0) mmol/L Calcium (8.6-10.3) mg/dL Total Bilirubin (0.2-1.0) mg/dL AST (13-39) U/L ALT (7-52) U/L Alkaline Phosphatase (34-104) U/L Troponin I 0.22 H* 0.18 H* (<0.04) ng/mL C-Reactive Protein (< 5.00) mg/L Total Protein (6.4-8.9) g/dL Albumin (3.2-5.2) g/dL Globulin (2-4) g/dL Albumin/Globulin Ratio (1-3) Triglycerides mg/dL Cholesterol mg/dL LDL Cholesterol mg/dL HDL Cholesterol mg/dL Urine Color Straw Urine Appearance Clear Urine pH 6.0 (5-9) Ur Specific [place] 1.005 L (1.010-1.030) Urine Protein Negative (Negative) Urine Ketones Negative (Negative) Urine Blood 2+ H (Negative) Urine Nitrate Negative (Negative) Urine Bilirubin Negative (Negative) Urine Urobilinogen Negative (Negative) Ur Leukocyte Esterase Negative (Negative) Urine WBC (Auto) Trace(0-5/hpf) (Absent) Urine RBC (Auto) 1+(3-5/hpf) H (Absent) Urine Bacteria Absent (Absent) Urine Glucose Negative (Negative) 03/13/16 03/13/16 03/13/16 Range/Units 01:48 05:33 05:33 WBC 9.8 (3.5-10.8) 10^3/ul RBC 4.37 (4.0-5.4) 10^6/ul Hgb 13.1 L (14.0-18.0) g/dl Hct 38 L (42-52) % MCV 88 (80-94) fL MCH 30 (27-31) pg MCHC 34 (31-36) g/dl RDW 14 (10.5-15) % Plt Count 179 (150-450) 10^3/ul MPV 8 (7.4-10.4) um3 Neut % (Auto) 67.2 (38-83) % Lymph % (Auto) 21.8 L (25-47) % Douglas % (Auto) 9.7 H (1-9) % Eos % (Auto) 1.0 (0-6) % Baso % (Auto) 0.3 (0-2) % Absolute Neuts (auto) 6.6 (1.5-7.7) 10^3/ul Absolute Lymphs (auto) 2.1 (1.0-4.8) 10^3/ul Absolute Monos (auto) 1.0 H (0-0.8) 10^3/ul Absolute Eos (auto) 0.1 (0-0.6) 10^3/ul Absolute Basos (auto) 0 (0-0.2) 10^3/ul Absolute Nucleated RBC 0 10^3/ul Nucleated RBC % 0 ESR (0-20) mm/Hr APTT 100.8 H* (26.0-36.3) seconds Sodium 136 (133-145) mmol/L Potassium 4.2 (3.5-5.0) mmol/L Chloride 105 (101-111) mmol/L Carbon Dioxide 27 (22-32) mmol/L Anion Gap 4 (2-11) mmol/L BUN 19 (6-24) mg/dL Creatinine 0.93 (0.67-1.17) mg/dL Est GFR ( Amer) 108.1 (>60) Est GFR (Non-Af Amer) 84.0 (>60) BUN/Creatinine Ratio 20.4 H (8-20) Glucose 96 (70-100) mg/dL Hemoglobin A1c (Less than 6.0) % Lactic Acid (0.5-2.0) mmol/L Calcium 8.5 L (8.6-10.3) mg/dL Total Bilirubin (0.2-1.0) mg/dL AST (13-39) U/L ALT (7-52) U/L Alkaline Phosphatase (34-104) U/L Troponin I 0.10 H* (<0.04) ng/mL C-Reactive Protein (< 5.00) mg/L Total Protein (6.4-8.9) g/dL Albumin (3.2-5.2) g/dL Globulin (2-4) g/dL Albumin/Globulin Ratio (1-3) Triglycerides 44 mg/dL Cholesterol 186 mg/dL LDL Cholesterol 126 mg/dL HDL Cholesterol 51.1 mg/dL Urine Color Urine Appearance Urine pH (5-9) Ur Specific [place] (1.010-1.030) Urine Protein (Negative) Urine Ketones (Negative) Urine Blood (Negative) Urine Nitrate (Negative) Urine Bilirubin (Negative) Urine Urobilinogen (Negative) Ur Leukocyte Esterase (Negative) Urine WBC (Auto) (Absent) Urine RBC (Auto) (Absent) Urine Bacteria (Absent) Urine Glucose (Negative) 03/13/16 03/13/16 Range/Units 05:33 13:22 WBC (3.5-10.8) 10^3/ul RBC (4.0-5.4) 10^6/ul Hgb (14.0-18.0) g/dl Hct (42-52) % MCV (80-94) fL MCH (27-31) pg MCHC (31-36) g/dl RDW (10.5-15) % Plt Count (150-450) 10^3/ul MPV (7.4-10.4) um3 Neut % (Auto) (38-83) % Lymph % (Auto) (25-47) % Douglas % (Auto) (1-9) % Eos % (Auto) (0-6) % Baso % (Auto) (0-2) % Absolute Neuts (auto) (1.5-7.7) 10^3/ul Absolute Lymphs (auto) (1.0-4.8) 10^3/ul Absolute Monos (auto) (0-0.8) 10^3/ul Absolute Eos (auto) (0-0.6) 10^3/ul Absolute Basos (auto) (0-0.2) 10^3/ul Absolute Nucleated RBC 10^3/ul Nucleated RBC % ESR (0-20) mm/Hr APTT 38.5 H (26.0-36.3) seconds Sodium (133-145) mmol/L Potassium (3.5-5.0) mmol/L Chloride (101-111) mmol/L Carbon Dioxide (22-32) mmol/L Anion Gap (2-11) mmol/L BUN (6-24) mg/dL Creatinine (0.67-1.17) mg/dL Est GFR ( Amer) (>60) Est GFR (Non-Af Amer) (>60) BUN/Creatinine Ratio (8-20) Glucose (70-100) mg/dL Hemoglobin A1c 4.8 (Less than 6.0) % Lactic Acid (0.5-2.0) mmol/L Calcium (8.6-10.3) mg/dL Total Bilirubin (0.2-1.0) mg/dL AST (13-39) U/L ALT (7-52) U/L Alkaline Phosphatase (34-104) U/L Troponin I (<0.04) ng/mL C-Reactive Protein (< 5.00) mg/L Total Protein (6.4-8.9) g/dL Albumin (3.2-5.2) g/dL Globulin (2-4) g/dL Albumin/Globulin Ratio (1-3) Triglycerides mg/dL Cholesterol mg/dL LDL Cholesterol mg/dL HDL Cholesterol mg/dL Urine Color Urine Appearance Urine pH (5-9) Ur Specific [place] (1.010-1.030) Urine Protein (Negative) Urine Ketones (Negative) Urine Blood (Negative) Urine Nitrate (Negative) Urine Bilirubin (Negative) Urine Urobilinogen (Negative) Ur Leukocyte Esterase (Negative) Urine WBC (Auto) (Absent) Urine RBC (Auto) (Absent) Urine Bacteria (Absent) Urine Glucose (Negative) Result Diagrams: 03/13/16 05:33 03/13/16 05:33 Lab Statement: Any lab studies that have been ordered have been reviewed, and results considered in the medical decision making process. - Radiology CXR Xray Interpretation: No Acute Changes - IMPRESSION: Stigmata of chronic obstructive pulmonary disease and emphysema. No acute cardiopulmonary process evident. Radiology Interpretation Completed By: Radiologist LT Shoulder XR Xray Interpretation: No Acute Changes - IMPRESSION: No fracture of the left shoulder is noted. Radiology Interpretation Completed By: Radiologist - EKG 10:51 Cardiac Rate: Tachycardia - 105 bpm EKG Rhythm: Sinus Rhythm ST Segment: Non-Specific EKG Interpretation: LVH; Prolonged QT interval Chest Pain Course/Dx - Diagnoses Provider Diagnoses: ACS (acute coronary syndrome) - Provider Notifications Discussed Care Of Patient With: Dr. Lemus (Hospitalist) at 12:05 -- Notified of patient's history and will admit the patient. Discharge - Discharge Plan Condition: Stable Disposition: ADMITTED TO [facility] documentation as recorded by the Monico givens Matthew accurately reflects the service I personally performed and the decisions made by , Faith Marks MD.
== END 2016-03-14 16:56 | disposition home or self-care (01) | DRG 191 ==
LOC: ED 10:41 → MEDTELE 12:06 → OBSVTOIN 03-13 15:46 → UNDODISIN 03-13 17:30
PROVIDERS: ADMIT Hospitalist; ATTEND Internal Medicine
PROC: B2111ZZ Fluoroscopy of Multiple Coronary Arteries using Low Osmolar Contrast (ICD-10-PCS; 2016-03-13)
PROC: B2151ZZ Fluoroscopy of Left Heart using Low Osmolar Contrast (ICD-10-PCS; 2016-03-13)
PROC: 4A023N8 Measurement of Cardiac Sampling and Pressure, Bilateral, Percutaneous Approach (ICD-10-PCS; principal; 2016-03-13 14:15)
DX: I35.0 Nonrheumatic aortic (valve) stenosis (principal); Q23.1 Congenital insufficiency of aortic valve; I47.1 Supraventricular tachycardia; D72.829 Elevated white blood cell count, unspecified; R79.89 Other specified abnormal findings of blood chemistry; R07.89 Other chest pain; M25.512 Pain in left shoulder; I44.4 Left anterior fascicular block; Z82.5 Family history of asthma and other chronic lower respiratory diseases; Z84.89 Family history of other specified conditions; Z82.49 Family history of ischemic heart disease and other diseases of the circulatory system; Z79.82 Long term (current) use of aspirin
CPT/HCPCS: 36415; 71010; 78451; 80048; 80053; 80061; 81003; 81015; 83036; 83605; 84484; 85025; 85652; 85730; 86140; 87040; 87086; 93005; 93306; 93460; 94760; A9270-GY; A9502; C1760; C1769; C1887; G0378; J0153; J1644; J1885; J2250; J3010; J3490

== ENCOUNTER 2016-03-22 23:46 | Emergency (ER) | payer MEDICAID ==
--- NOTE | 2016-03-23 01:58 | ED ---
Lower Extremity - HPI Summary HPI Summary: 55 male presents complaining of right big toe pain that began 03/22/16 around 12: 30pm suddenly. Patient describes the pain to be tender on palpation, hot and swollen. Describes pain to be similar to "Cramping and burning". He has never had pain like his before. Denies history of gout and arthritis. Denies any recent trauma or injury. Denies radiation. Had recent cardiac catheterization ~ 2 weeks ago in right leg. No complaints with that. Told at last follow-up with surgeon that it was healing nicely. Denies chest pain, difficulty breathing and calf pain. Admits to eating red meats, drinking red wine ~3ounces today and shrimp earlier this afternoon. Does eat a good amount of shellfish and red meat. Also states he does liver flushes to get rid of gallstones and he did one last night. He was not sure if this had anything to do with it. It has gotten worse since it began and has not taken any medication for it. - History of Current Complaint Chief Complaint: EDExtremityLower Stated Complaint: RIGHT LEG PAIN Time Seen by Provider: 03/23/16 00:27 Hx Obtained From: Patient Onset/Duration: Worse Since Severity Initially: Mild Severity Currently: Moderate Pain Intensity: 3 Pain Scale Used: 0-10 Numeric Timing: Constant Character Of Pain: Aching, Stiffness, Burning Associated Signs And Symptoms: Positive: Swelling, Redness, Other - pain of right big toe Aggravating Factor(s): Ambulation, Movement Alleviating Factor(s): Nothing Able to Bear Weight: Yes - Allergies/Home Medications Allergies/Adverse Reactions: Allergies Allergy/AdvReac Type Severity Reaction Status Date / Time No Known Allergies Allergy Verified 03/12/16 11:36 PMH/Surg Hx/FS Hx/Imm Hx Endocrine/Hematology History: Denies: Hx Diabetes Cardiovascular History: Reports: Hx Angina, Hx Valvular Heart Disease, Other Cardiovascular Problems/Disorders - Patient has murmur Denies: Hx Coronary Artery Disease, Hx Hypercholesterolemia, Hx Hypertension , Hx Myocardial Infarction Respiratory History: Denies: Hx Asthma, Hx Chronic Obstructive Pulmonary Disease (COPD) - Surgical History Surgery Procedure, Year, and Place: Cardiac Cath, Valve Replacement Infectious Disease History: No Infectious Disease History: Denies: Traveled Outside the [place] in Last 30 Days - Family History Known Family History: Positive: None - Social History Alcohol Use: Occasionally Substance Use Type: Reports: Marijuana Substance Use Comment - Amount & Last Used: Few times a month Smoking Status (MU): Never Smoked Tobacco Review of Systems Constitutional: Negative Eyes: Negative ENT: Negative Cardiovascular: Negative Respiratory: Negative Gastrointestinal: Negative Genitourinary: Negative Positive: Arthralgia - right big toe Positive: Other - swelling, redness, warmth of right big toe Neurological: Negative Psychological: Normal All Other Systems Reviewed And Are Negative: Yes Physical Exam Triage Information Reviewed: Yes Vital Signs On Initial Exam: Initial Vitals Temp Pulse Resp BP Pulse Ox 98.5 F 62 18 142/64 100 03/22/16 23:52 03/22/16 23:52 03/22/16 23:52 03/22/16 23:52 03/22/16 23:52 Vital Signs Reviewed: Yes Appearance: Positive: Well-Appearing, No Pain Distress, Well-Nourished Skin: Positive: Warm, Skin Color Reflects Adequate Perfusion - < 2 second cap refill, Dry Head/Face: Positive: Normal Head/Face Inspection Eyes: Positive: Conjunctiva Clear Neck: Positive: Supple, Nontender, No Lymphadenopathy Respiratory/Lung Sounds: Positive: Clear to Auscultation, Breath Sounds Present Cardiovascular: Positive: Normal, RRR, Pulses are Symmetrical in both Upper and Lower Extremities - 2+ pedal pulses bilaterally Abdomen Description: Positive: Nontender Musculoskeletal: Positive: Strength/ROM Intact - pain with movement but able, Pain @ - great toe of right foot, medial side "podagra"., Edema Right - very mild of right great toe, warmth to touch, some tenderness on palpation. slight erythema. no sign or feeling of fluid accumulation. rest of right lower extremity and left lower extremity completely normal. sensation intact. skin intact. US done by Dr Barth of entire right extremity no sign of clot or infection/fluid of great toe.. Negative: Marcelle Sign Left, Marcelle Sign Right Neurological: Positive: Normal, Sensory/Motor Intact, Alert, Oriented to Person Place, Time Psychiatric: Positive: Normal Diagnostics - Vital Signs Vital Signs Temp Pulse Resp BP Pulse Ox 03/22/16 23:52 98.5 F 62 18 142/64 100 - Laboratory Lab Results: Lab Results 03/23/16 Range/Units 01:22 Lactic Acid 0.6 (0.5-2.0) mmol/L Lab Statement: Any lab studies that have been ordered have been reviewed, and results considered in the medical decision making process. - Radiology right [place] x-ray Xray Interpretation: No Acute Changes Radiology Interpretation Completed By: Radiologist - Ultrasound No standard instances Ultrasound Interpretation: No Acute Changes - no sign of fluid accumulation of right great big toe, bone cortex normal and no sign of clot on right lower extremity. Ultrasound Interpretation Completed By: ED Physician - Dr Barth Lower Extremity Course/Dx - Course Course Of Treatment: CBC, CMP Lactic, Uric Acid and X-ray of right foot was ordered. X-ray was normal. No sign of fracture or acute gouty attack at this time. no synovial fluid to assess. Due to physcial exam signs and Ultrasound done by Dr Barth the results of labs would not alter treatment at this time. US eliminated DVT and no sign of infection/GOUT of big toe at this time. Told to take ibuprofen and follow up with primary care doctor. Aware that symptoms may worsen, become more swollen, red and painful and told at this time to seek medical attention. - Diagnoses Differential Diagnosis/HQI/PQRI: Positive: Arthritis, Gout, Sprain, Strain Provider Diagnoses: Pain of right great toe Discharge - Discharge Plan Condition: Stable Disposition: HOME Patient Education Materials: Arthralgia (ED), Gout (ED), Low Purine Diet (ED) Additional Instructions: Take Ibuprofen OTC for the next couple of days to see if it gives you any relief. This may be the beginning signs of acute gouty arthritis. If symptoms worsen such as fever,chills, increased swelling, redness, pain and fluid filled please seek medical attention either at the ED or with your primary care provider. Addendum entered and electronically signed by Miranda Berry PA 03/23/16 02: 24: ED Addendum Addendum: Right foot x-ray: No acute change Read by ED Physician: Dr Barth (not radiologist)
[2016-03-23] MEDS ORDERED: Ibuprofen TAB* 400 MG PO ONE (02:22)
[2016-03-23 02:27] LABS: Hematocrit 38 % (42-52); Hemoglobin 12.6 g/dl (14.0-18.0); Mean Corpuscular HGB Conc 33 g/dl (31-36); Mean Corpuscular Hemoglobin 29 pg (27-31); Mean Corpuscular Volume 88 fL (80-94); Mean Platelet Volume 8 um3 (7.4-10.4); Red Blood Count 4.38 10^6/ul (4.0-5.4); Red Cell Distribution Width 13 % (10.5-15); White Blood Count 8.2 10^3/ul (3.5-10.8)
[2016-03-23 02:36] LABS: Albumin 3.9 g/dL (3.2-5.2); BUN/Creatinine Ratio 19.6 (8-20); Calcium 9.1 mg/dL (8.6-10.3); EGFR African American 91.9 (>60); EGFR Non-African American 71.5 (>60); Potassium 4.1 mmol/L (3.5-5.0); Total Bilirubin 0.3 mg/dL (0.2-1.0); Total Protein 6.9 g/dL (6.4-8.9); Uric Acid 8.2 mg/dL (4.4-7.6)
[2016-03-23 02:51] VITALS: BP 104/45
--- NOTE | 2016-03-23 07:54 | RAD ---
Indication: Sudden onset swelling RIGHT great toe. Cramping and tightness. Post cardiac catheterization March 13, 2016. Comparison: None. Technique: AP, lateral, and oblique views RIGHT foot. Report: Normal articular alignment. Negative for fracture. No osseous erosions or periosteal reaction evident. Mild osteophytosis and joint space narrowing at the first metatarsal phalangeal joint. Mild soft tissue swelling from the first metatarsal phalangeal joint through the distal great toe. IMPRESSION: Mild osteoarthritis at the first metatarsal phalangeal joint. Nonspecific mild soft tissue swelling from the first metatarsal phalangeal joint through the tip of the great toe. No osseous erosions evident.
== END 2016-03-23 02:50 | disposition home or self-care (01) ==
LOC: ED 23:46
DX: M79.674 Pain in right toe(s) (principal); M19.071 Primary osteoarthritis, right ankle and foot; R01.1 Cardiac murmur, unspecified; Z95.2 Presence of prosthetic heart valve; I20.9 Angina pectoris, unspecified
CPT/HCPCS: 36415; 80053; 83605; 84550; 85025; 99282

== ENCOUNTER 2016-05-01 15:25 | Observation (INO) | payer MEDICAID, OTHER ==
[2016-05-01] MEDS ORDERED: ceFAZolin VIAL(*) 1 GM in NS 0.9% 50 ML* 50 ML IVPB ONE (16:12)
[2016-05-01] MEDS ORDERED: Al Hydrox/Mg Hydrox/Simet LIQ* 30 ML UDC PO PRN (16:14)
[2016-05-01] MEDS ORDERED: Acetaminophen TAB* 325 MG PO PRN (16:14)
[2016-05-01] MEDS: Saline FLUSH-PERIPHERAL* 10 ML SYRINGE PERIPH SCH (17:35)
--- NOTE | 2016-05-01 17:35 | RAD ---
Indication: Pacemaker leads, recent placement. 2 views of the chest including dual energy PA views demonstrates pacemaker leads in place. Patient is status post chest thoracotomy. Lung gibbs appear hyperinflated. Small right pleural effusion is noted. Impression. Small right pleural effusion with hyperinflated lung gibbs. Pacemaker leads are in place. No pneumothorax is identified.
[2016-05-01 19:22] LABS: Hematocrit 29 % (42-52); Hemoglobin 9.8 g/dl (14.0-18.0); Mean Corpuscular HGB Conc 33 g/dl (31-36); Mean Corpuscular Hemoglobin 29 pg (27-31); Mean Corpuscular Volume 88 fL (80-94); Mean Platelet Volume 7 um3 (7.4-10.4); Red Blood Count 3.35 10^6/ul (4.0-5.4); Red Cell Distribution Width 14 % (10.5-15); White Blood Count 8.6 10^3/ul (3.5-10.8)
[2016-05-01 19:48] LABS: BUN/Creatinine Ratio 21.4 (8-20); EGFR African American 121.6 (>60); EGFR Non-African American 94.5 (>60); Potassium 3.9 mmol/L (3.5-5.0)
[2016-05-01] MEDS ORDERED: Zolpidem TAB* 5 MG PO PRN (21:00)
--- NOTE | 2016-05-01 23:28 | HP ---
ADMISSION HISTORY AND PHYSICAL: DATE OF ADMISSION: 05/01/16 INDICATION FOR ADMISSION: Ventricular lead dysfunction. HISTORY OF PRESENT ILLNESS: The patient is a 55-year-old gentleman with a history of bicuspid aortic valve. He is status post aortic valve replacement and ascending aorta repair on 04/08/16. 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 I saw the patient in the office in followup. His EKG in the office demonstrated normal sinus rhythm with intermittent noncapture of his ventricular lead. The patient is ventricular lead dependent. The patient has a [employer] dual-chamber pacemaker. Interrogation of the device demonstrated that his ventricular lead threshold had increased from 0.7 V to 2.2 V since discharge from the hospital in [place]. The patient is being admitted at the hospital for a ventricular lead revision. OUTPATIENT MEDICATIONS: Vitamin supplements only. ALLERGIES: No known drug allergies. FAMILY HISTORY: Noncontributory. SOCIAL HISTORY: He is . He is currently retired. He denies tobacco or alcohol use. REVIEW OF SYSTEMS: Negative for fevers and chills. Negative for changes in bowel or bladder habits. Negative for changes in weight. Other 12-point review is unremarkable. PHYSICAL EXAMINATION Height is 5 feet 11 inches, weight is 164 pounds, heart rate is 60, blood pressure 100/70, respiratory rate is 16. Sclerae anicteric. Oropharynx is pink without erythema. Carotids are 2+ without bruits. JVD is normal. Thyroid is normal. Cardiac Exam: S1, S2 with a 1/6 systolic ejection murmur. No diastolic murmur. PMI is normal. Lungs are clear to auscultation bilaterally. There is no dullness to percussion. Abdomen is soft, nontender, nondistended, with normoactive bowel sounds. Extremities show no edema. He has 2+ pulses throughout. The patient is awake, alert, and oriented. He moves all 4 extremities equally. DIAGNOSTIC STUDIES/LAB DATA: EKG demonstrates normal sinus rhythm, ventricularly paced with an intermittent noncapture. IMPRESSION: This is a 55-year-old gentleman with a history of aortic valve replacement and ascending aorta repair, who also had a pacemaker placed because of third-degree heart block. His pacemaker is now showing intermittent noncapture of the ventricular lead. The patient is ventricular lead dependent. The patient is scheduled for ventricular lead revision tomorrow. [id number]/[facility] #: [id number] MTDNasim
[2016-05-02] MEDS: Saline FLUSH-PERIPHERAL* 10 ML SYRINGE PERIPH SCH ×4 (01:15→23:52)
[2016-05-02] MEDS ORDERED: Cephalexin CAP* 500 MG PO ONE (11:00)
[2016-05-02] MEDS ORDERED: ceFAZolin 2 GM PREMIX(*) 2 GM/50 ML BAG IVPB ONE (12:00)
[2016-05-02] MEDS ORDERED: ceFAZolin VIAL 1 GM in NS *SYRINGE * * 10 ML ONE (12:30)
[2016-05-02] MEDS ORDERED: Naloxone* 0.4 MG/ML 1 ML VIAL ONE (13:14)
[2016-05-02] MEDS ORDERED: fentaNYL* 50 MCG/ML 2 ML VIAL (100 MCG VIAL) ONE (13:14)
[2016-05-02] MEDS ORDERED: Midazolam* 1 MG/ML 5 ML VIAL (5 MG) ONE (13:14)
[2016-05-02] MEDS ORDERED: Flumazenil* 0.1 MG/ML 5 ML MDV ONE (13:15)
[2016-05-02] MEDS ORDERED: Lidocaine 1% INJ* 10 MG/ML 30 ML SDV ONE (13:15)
[2016-05-02] MEDS ORDERED: Acetaminophen TAB* 325 MG PO PRN (15:25)
--- NOTE | 2016-05-02 15:45 | RAD ---
INDICATION: Pacemaker lead adjustments. COMPARISON: Comparison is made with a prior chest x-ray study from May 01, 2016. TECHNIQUE: 341.7 seconds of intermitted fluoroscopic guidance were provided. FINDINGS: 2 spot films of the chest were obtained centered over the cardiac region. IMPRESSION: INTRAOPERATIVE CONTROL FILMS. CPT II Codes: 6045F
--- NOTE | 2016-05-02 16:46 | RAD ---
Indication: Readjustment of cardiac pacemaker leads. Single frontal view of the chest performed at 1622 hours was reviewed. Comparison is made with previous exam dated May 02, 2016. Pacemaker leads are in place. The right ventricular lead remains unchanged in position since previous exam. Lung gibbs appear hyperinflated. No pneumothorax is noted. IMPRESSION: Right atrial and right ventricular leads appear in place..
--- NOTE | 2016-05-03 05:21 | OP ---
DATE OF OPERATION: 05/02/16 - ROOM #445 DATE OF : 58 SURGEON: Edin Morrison MD ANESTHESIA: Local anesthesia with conscious sedation. PRE-OP DIAGNOSES: Third-degree heart block, right ventricular lead microdislodgement. POST-OP DIAGNOSES: Third-degree heart block, right ventricular lead microdislodgement. OPERATIVE PROCEDURE: Right ventricular lead revision, right ventricular temporary wire placement. INDICATIONS: The patient is a 55-year-old gentleman who underwent aortic valve replacement and ascending aorta repair at the end of March. The patient had a dual-chamber pacemaker placed up in [facility] on April 11. The patient was seen in followup and noted to have intermittent non-capture of his right ventricular lead. Right ventricular lead revision was recommended. ESTIMATED BLOOD LOSS: Nil. COMPLICATIONS: None. DESCRIPTION OF PROCEDURE: The patient was brought to the operating room in a fasting state. Informed consent had been obtained prior to the procedure. All labs had been reviewed. The patient was placed supine on the procedure table. His left deltopectoral area and his right groin area were prepped and draped in the usual fashion. 1% lidocaine was used for local anesthesia. The right femoral vein was entered by a modified Seldinger technique and a guidewire was placed. Over the guidewire, a 5-Mont[place] introducer was placed, through which a balloon-tipped temporary pacing catheter was placed up into the RV apex. The device was tested and the right ventricular temporary wire had a threshold of 2 volts at 0.5 milliseconds. The right ventricular temporary pacing wire was sutured into position. Attention was turned to his pacemaker. A 4-cm incision was made in the superior aspect of the pacemaker and blunt dissection was carried down to the pacemaker itself. The pacemaker was removed from the fiber sheath and the atrial and ventricular leads were identified. The ventricular lead was then freed up from the sutures on the pectoral fascia and the right ventricular lead was detached from the right ventricular pacemaker. A stylet was then advanced down to the end of the right ventricular lead. The lead itself was sitting at an odd superior angle out of the RV apex. The lead was then straightened out. Attempts were made to dislodge the right ventricular lead , but with a reasonable amount of tension, the lead did not dislodge. The lead was then straightened out and placed at a better angle and tested. The right ventricular lead had an impedance of 380 ohms, RV sensing at 16 millivolts, threshold at 1.2 volts at 0.5 milliseconds. The right ventricular lead was then sutured to the pectoral fascia using 0 silk, and the right ventricular lead was re-attached to the pacemaker. The pacemaker was placed into the pocket and the right ventricular lead was then re-tested. The results were the same. The right ventricular threshold was 1.2 volts at 0.5 milliseconds. The patient was placed at an output of 2 volts at 0.5 milliseconds and asked to cough and take deep breaths, there was no evidence of non-capture of the right ventricular lead. The pocket was then flushed with antibiotic-infused normal saline. The surgical incision was closed in 3 layers and subcutaneous tissue was closed with 2-0 and 3-0 absorbable suture. The skin was closed with sharif. The patient was then moved off the OR table. The right ventricular temporary pacing lead was then removed and pressure was held for 5 minutes. The patient was then placed in an upright position and the right ventricular lead was then tested again and noted to be stable. The patient was returned to the holding area in stable condition. The right ventricular lead was programmed to an output of 7 millivolts at 1 millisecond. The pacemaker was a [employer]ent[employer], model L111. The atrial lead was tested. At the end of the procedure, it had an impedance of 350 ohms, threshold 0.4 volts at 0.4 milliseconds. The right ventricular lead had an impedance of 300 ohms, R-wave sensitivity of 8, pacing threshold 1.2 volts at 0.4 milliseconds. The patient returned to the holding area in stable condition. [id number]/[facility] #: [id number] [facility] H[facility]ITAL[facility]asim
[2016-05-03] MEDS: Saline FLUSH-PERIPHERAL* 10 ML SYRINGE PERIPH SCH (08:00)
--- NOTE | 2016-05-03 10:44 | RAD ---
HISTORY: Status post device implant COMPARISONS: May 02, 2016 VIEWS: 2: Frontal dual-energy and lateral views of the chest. FINDINGS: CARDIOMEDIASTINAL SILHOUETTE: The cardiomediastinal silhouette is normal. RAYMOND: The raymond are normal. PLEURA: There are small bilateral pleural effusions. There is appreciable pneumothorax. LUNG PARENCHYMA: There is hyperinflation with flattening of the diaphragm and expansion of the AP diameter of the chest. ABDOMEN: The upper abdomen is clear. There is no subphrenic gas. BONES AND SOFT TISSUES: The patient is status post median sternotomy OTHER: A left-sided pacemaker is noted IMPRESSION: HYPERINFLATION. SMALL BILATERAL PLEURAL EFFUSIONS.
[2016-05-03] MEDS ORDERED: Cephalexin CAP* 500 MG PO ONE (11:00)
[2016-05-03] MEDS ORDERED: Cephalexin CAP* 500 MG PO SCH (14:00)
[2016-05-03 16:09] VITALS: BP 130/80
--- NOTE | 2016-05-04 00:36 | DS ---
CC: Dr. Morrison DISCHARGE SUMMARY:* ADDENDUM: DISCHARGE MEDICATIONS: Include: 1. Ferrous sulfate 65 mg b.i.d. 2. Aspirin 81 mg a day. 3. Cephalexin 500 mg t.i.d. for 9 doses. 4. Acetaminophen 650 mg q.4 p.r.n. [id number]/[facility] #: [id number] MTDD
--- NOTE | 2016-05-04 01:11 | DS ---
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 HISTORY OF PRESENT ILLNESS: This is a very pleasant 55-year-old gentleman with history of bicuspid aortic valve. He underwent aortic valve replacement and repair of the ascending aorta on April 08. He had third-degree AV block after the procedure and had a dual-chamber pacemaker placed on April 11. His followup EKG demonstrated intermittent noncapture. His threshold increased from 0.7 volts to 2.2 volts since the discharge. He was admitted for revision of his lead, which was performed yesterday by Dr. Morrison. The patient's captured thresholds were 1.5 volts at 0.4 milliseconds. RV output was 7.5 volts at 1 milliseconds. He had a repeat evaluation today and it was stable. He also had an EKG, which showed AV pacing and chest x-ray, which showed small bilateral pleural effusions, stable, and no pneumothorax. He was seen today, is feeling well, and ambulating about the [place], no evidence of dizziness or ventricular lead failure to capture. MEDICATIONS: Have included: 1. Acetaminophen. 2. Maalox. 3. He had a dose of cephalexin. ALLERGIES: He has no known allergies. PHYSICAL EXAMINATION: He is a well-developed, well-nourished gentleman, in no apparent distress. His pulse at 11:50 was 73 with blood pressure 125/93 and blood pressures have been running in the 108/58 to 137/61 range. Healing sternal wound, no drainage, no erythema. Pacemaker site was covered with bandage. No JVD. Carotids 2+. Cardiac Exam: S1 and S2 with a 1-2/6 systolic ejection murmur at the base. Chest was clear. Extremities: No edema. DIAGNOSTIC STUDIES: EKG revealed AV sequential pacing. Chest x-ray as mentioned above, no pneumothorax. See Dr. Morrison's operative note from yesterday for details of procedure. IMPRESSION: My impression is that Mr. Tatum was admitted for ventricular lead malfunction and underwent revision, now at normal pulse generator function with no symptoms. I discussed the findings with the patient and plan for discharge. Also, discussed the case with Dr. Morrison yesterday. Given the stable findings on chest x- ray and pacemaker interrogation, the plan is to discharge home. Mr. Tatum had multiple questions, which were answered at length. DISCHARGE FOLLOWUP: He is to follow up with Dr. Morrison in 1 to 2 weeks' time. He understands that Dr. Morrison is going to discuss the case with Dr. Perez and let him know if any further interventions are needed. I did suggest that he monitor for dizziness. He is to report any fevers or dizziness may indicate problems with the recent procedure. TIME SPENT: Greater than 30 minutes was spent on the discharge in coordinating care and answering the patient's questions. Discharge is pending this afternoon after his dressing is changed. ADDENDUM: DISCHARGE MEDICATIONS: Include: 1. Ferrous sulfate 65 mg b.i.d. 2. Aspirin 81 mg a day. 3. Cephalexin 500 mg t.i.d. for 9 doses. 4. Acetaminophen 650 mg q.4 p.r.n. CC: Dr. Morrison; Dr. García * [id number] #: [id number] #: [id number] [facility]
== END 2016-05-03 17:53 | disposition home or self-care (01) ==
LOC: MEDTELE 15:25 → INTOOBSV 05-02 15:25 → OBSVTOIN 05-02 15:25
PROVIDERS: ADMIT Specialist; ATTEND Specialist
DX: T82.128A Displacement of other cardiac electronic device, initial encounter (principal); Y83.8 Other surgical procedures as the cause of abnormal reaction of the patient, or of later complication, without mention of misadventure at the time of the procedure; Y92.9 Unspecified place or not applicable; I44.2 Atrioventricular block, complete
CPT/HCPCS: 33210; 33215; 36415; 71010; 71020; 76001; 80048; 85027; 93005; A9270-GY; G0378; J0690; J2001; J2250; J2310; J3010